=== PATIENT | female | born 1980 | race Caucasian/White ===

== ENCOUNTER → 2017-03-04 | Outpatient (CLI) | payer BC ==
[~2017-03-04] MED LIST: ACHYD1T PO; AMOX-355 PO; AMOX-358 PO; BUPR-42 PO; COPAXONE; DCS100C PO; DEXA0.5T PO; DOCU100C37 PO; FLUO20CA25 PO; FLUT9.9S NS; FRS325T PO; GADOBUTROL 7.5 MMOL/7.5 ML (GADAVIST) VIAL IV ONE; HYDR-3812 PO; IBP800T PO; ITRA100C PO; LEVO5TAB2 PO; LEVO5TAB28 PO; LIRA0.6P SQ; LVT.088T PO; METF-380 PO; METF500T8 PO; MULT1TAB12 PO; NALT1TAB PO; NAPR500T4 PO; OXYC-465 PO; PRD20T PO; PREN1TAB64 PO; Patient May Use Own Meds, All MC; SPIR25TA3 PO; SPIR50TA2 PO; THYR65TA5 PO
--- NOTE | 2017-03-04 18:57 | Diagnostic Imaging Report ---
INDICATION: Multiple sclerosis Multiplanar pre-and postcontrast MR imaging of the thoracic spine are obtained. Comparison is made to the study of 10/03/2015. Thoracic spinal curvature and alignment remain within normal limits. Vertebral body heights and disc spaces are maintained. There has been slight overall increase in conspicuity of the central canal throughout the thoracic spinal cord. There is, however, no significant eccentricity or solid component. There is no abnormal enhancement. Note is made of small left paramedian protrusion of the T6-7 and T7-8 disc without significant spinal stenosis. No other significant disc disease or spinal stenosis is identified. There is no evidence of paraspinous abnormality. IMPRESSION: Mild overall increase in central spinal canal which may be due to mild hydromyelia. There is no evidence of mass lesion or abnormal enhancement. There is no MRI evidence of active multiple sclerosis plaque. Small left paramedian protrusion to the T6-7 and T7-8 disc demonstrate no significant associated stenosis. Dictated by: Dictated on workstation # [id number]
--- NOTE | 2017-03-04 19:47 | Diagnostic Imaging Report ---
EXAMINATION: MRI lumbar spine with and without contrast dated 03/04/2017. TECHNIQUE: Multiplanar, multisequence MRI of the lumbar spine was performed with and without contrast. INDICATION: History of MS. Recheck. COMPARISON: 10/03/2015. FINDINGS: As previously described, a transitional-type vertebral body is seen in the lower lumbar region. Labeling will be performed similar to previous. Please see sagittal imaging. At L4-L5, very mild grade 1 retrolisthesis is stable from previous with remaining alignment maintained. Vertebral body heights are preserved. Tip of the conus has a normal appearance and lies at the T12-L1 level. From L1-L2 through L2-L3, no significant central or neuroforaminal stenosis is appreciated. The L3-L4 level demonstrates disc desiccation with mild broad-based bulging disc material. Bilateral facet hypertrophy is seen with no central stenosis appreciated. The neuroforamina are patent. At L4-L5, there is disc desiccation. There is a broad-based bulging disc with bilateral facet hypertrophy. No significant central stenosis is appreciated. The neuroforamina demonstrate minimal narrowing on the left and no narrowing on the right. At L5-S1, disc desiccation is noted. Slight right paracentral bulging disc is seen with no central narrowing appreciated. The neuroforamina appear patent. Post contrast imaging is unremarkable. The visualized intrapelvic structures demonstrate a poorly evaluated but prominent-appearing uterus. Remaining intra-abdominal structures are grossly unremarkable. Pelvic sonography could better characterize the uterus, as clinically warranted. IMPRESSION: 1. Degenerative findings, as described. No significant interval change is seen. 2. Other incidental findings including within the pelvis, as noted above. Dictated by: Dictated on workstation # [id number]
== END ==
LOC: RAD 16:51
PROVIDERS: ATTEND Nurse Practitioner Family
DX: M51.24 Other intervertebral disc displacement, thoracic region (principal); M51.26 Other intervertebral disc displacement, lumbar region; M47.816 Spondylosis without myelopathy or radiculopathy, lumbar region
CPT/HCPCS: 72157; 72158

== ENCOUNTER → 2017-03-05 | Outpatient (CLI) | payer BC ==
--- NOTE | 2017-03-05 09:50 | Diagnostic Imaging Report ---
PROCEDURE: MR imaging cervical spine with and without contrast. TECHNIQUE: Multiplanar and multisequence MRI of the cervical spine was performed with and without contrast. INDICATION: History of multiple sclerosis. COMPARISON: 10/02/2015. FINDINGS: The cervical spinal cord has an unremarkable volume morphology and signal intensity and showed no abnormal enhancement following contrast. It showed no change from prior and there is no convincing evidence for acute or chronic cervical involvement by sequelae of a demyelinating disease. The vertebral body heights are maintained. The alignment is anatomic. Bulging desiccated disc at C4-C5, effacing and indenting the ventral thecal sac resulting in mild canal stenosis with no substantial foraminal narrowing. Bulging disc at C5-C6 is at the midline, mildly indenting the ventral thecal sac with mild canal stenosis. At C6-C7 some slight bulging disc eccentric to the left, results in no substantial canal or foraminal stenosis. These findings are stable. IMPRESSION: Pll-fr-mundi cervical spondylosis with stable mild degrees of stenosis. Normal cord. No abnormal enhancement. No acute appearing pathology. Dictated by: Dictated on workstation # [id number]
--- NOTE | 2017-03-05 12:41 | Diagnostic Imaging Report ---
PROCEDURE: MR imaging of the brain with and without contrast. TECHNIQUE: Multiplanar, multisequence MR imaging of the brain was performed with and without contrast. INDICATION: Multiple sclerosis. Study compared 10/02/2015. FINDINGS: Minimal right greater than left periatrial deep white matter T2 hyperintensity best seen on FLAIR weighted pulse sequences is less conspicuous than on prior. White matter disease adjacent to the posterior body of the left lateral ventricle is not substantially changed. Small amount of left frontal lobe subcortical white matter disease unchanged. No new lesion or adverse development. None of the foci of abnormal signal or white matter pathology revealed mass effect and none showed abnormal diffusion restriction. None of the lesions revealed enhancement following contrast. There were no findings of disease progression or evidence for active demyelinization. The optic nerves and orbital contents had an unremarkable appearance. The brainstem and posterior fossa unremarkable. There is no intracranial hemorrhage. The midline structures are nondisplaced. IMPRESSION: White matter disease showed no progression from prior and no findings of active demyelinization at this study. No acute finding or adverse development. Dictated by: Dictated on workstation # [id number]
== END ==
LOC: RAD 08:03
PROVIDERS: ATTEND Internal Medicine
DX: M47.812 Spondylosis without myelopathy or radiculopathy, cervical region (principal); G35 Multiple sclerosis
CPT/HCPCS: 70553; 72156

== ENCOUNTER 2017-04-04 09:28 | Outpatient (CLI) | payer BC ==
[~2017-04-04] VITALS: Ht 160 cm; Wt 71.5 kg
[~2017-04-04 09:28] MED LIST changes: -AMOX-355 PO; -AMOX-358 PO; -BUPR-42 PO; -DOCU100C37 PO; -FLUT9.9S NS; -HYDR-3812 PO; -ITRA100C PO; -LEVO5TAB28 PO; -METF500T8 PO; -NALT1TAB PO; -NAPR500T4 PO; -OXYC-465 PO; -PRD20T PO; -Patient May Use Own Meds, All MC; -SPIR50TA2 PO; -THYR65TA5 PO
[2017-04-04] MEDS ORDERED: NALT1TAB PO (09:45)
[2017-04-04] MEDS ORDERED: SPIR50TA2 PO (09:45)
[2017-04-04] MEDS ORDERED: METF500T8 PO (09:45)
[2017-04-04] MEDS ORDERED: THYR65TA5 PO (09:45)
[2017-04-04] MEDS ORDERED: LEVO5TAB28 PO (09:45)
[2017-04-04 09:54] VITALS: BP 115/81
[2017-04-04 10:24] LABS: BASOPHILS % (AUTO) 0 % (0-10); EOSINOPHILS # (AUTO) 0.2 10^3/uL (0.0-0.3); EOSINOPHILS % (AUTO) 2 % (0-10); LYMPHOCYTES # (AUTO) 3.5 X 10^3 (1.0-4.0); LYMPHOCYTES % (AUTO) 28 % (12-44); MEAN CORPUSCULAR HEMOGLOBIN 31 PG (25-34); MEAN CORPUSCULAR HGB CONC 34 G/DL (32-36); MEAN CORPUSCULAR VOLUME 90 FL (80-99); MEAN PLATELET VOLUME 10.1 FL (7.4-10.4); MONOCYTES # (AUTO) 1.2 X 10^3 (0.0-1.0); MONOCYTES % (AUTO) 10 % (0-12); NEUTROPHILS # (AUTO) 7.6 X 10^3 (1.8-7.8); NEUTROPHILS % (AUTO) 60 % (42-75); PLATELET COUNT 337 10^3/uL (130-400); RED BLOOD COUNT 4.63 10^6/uL (4.35-5.85); RED CELL DISTRIBUTION WIDTH 12.3 % (10.0-14.5); WHITE BLOOD COUNT 12.6 10^3/uL (4.3-11.0)
[2017-04-04] MEDS ORDERED: AMOX-358 PO (14:12)
[2017-04-04] MEDS ORDERED: ITRA100C PO (14:12)
[2017-04-04] MEDS ORDERED: NAPR500T3 PO (14:12)
[2017-04-04] MEDS ORDERED: DEXA0.5T PO (14:12)
[2017-04-05] MEDS ORDERED: FLUT9.9S NS (12:46)
== END 2017-04-04 10:28 | disposition home or self-care (01) ==
LOC: PREOP 09:28
PROVIDERS: ATTEND Obstetrics & Gynecology
DX: Z01.812 Encounter for preprocedural laboratory examination (principal); N93.8 Other specified abnormal uterine and vaginal bleeding
CPT/HCPCS: 36415; 85025; 86850; 86900; 86901; 87081

== ENCOUNTER → 2017-04-04 | Outpatient (CLI) | payer BC ==
[~2017-04-04] MED LIST changes: -GADOBUTROL 7.5 MMOL/7.5 ML (GADAVIST) VIAL IV ONE
--- NOTE | 2017-04-04 11:25 | Diagnostic Imaging Report ---
PROCEDURE: CT sinuses without contrast TECHNIQUE: Multiple contiguous axial images were obtained through the sinuses without the use of intravenous contrast. Coronal and sagittal reformations were then performed. INDICATION: Chronic pansinusitis. FINDINGS: There is opacification of a mid left ethmoidal air cell. The rest of the paranasal sinuses appear clear. The middle ear cavities and ossicles appear unremarkable. The ostiomeatal complex on the right is patent. The ostiomeatal complex on the left demonstrates minimal mucosal thickening but is probably patent with no accumulation of secretions in the left maxillary sinus. There is moderate mucosal thickening in the inferior ethmoidal air cells. Mild nasal septal deviation to the left is seen. There is moderate mucosal thickening along the inferior turbinates bilaterally. This results in slight narrowing of the nasal passages. IMPRESSION: 1. Mild mucosal thickening along the left ethmoidal air cells and along the left ostiomeatal complex. 2. Moderate mucosal thickening along the inferior turbinates bilaterally. Dictated by: Dictated on workstation # [id number]
== END ==
LOC: RAD 09:32
PROVIDERS: ATTEND Otolaryngology Otolaryngology/Facial Plastic Surgery
DX: J01.80 Other acute sinusitis (principal)
CPT/HCPCS: 70486

== ENCOUNTER 2017-04-08 10:19 | Day surgery (SDC) | payer BC ==
[~2017-04-08] VITALS: Ht 160 cm; Wt 71.5 kg
[~2017-04-08 10:19] MED LIST changes: +AMOX-358 PO; +FLUT9.9S NS; +ITRA100C PO; +LEVO5TAB28 PO; +METF500T8 PO; +NALT1TAB PO; +NAPR500T4 PO; +SPIR50TA2 PO; +THYR65TA5 PO
[2017-04-08 10:35] VITALS: BP 133/85
[2017-04-08] MEDS: LACTATED RINGERS 1,000 ML IV PRN ×2 (10:35→12:50)
[2017-04-08] MEDS ORDERED: ONDANSETRON 4 MG/2 ML (SDV) Z0FRAN ONE (10:54)
[2017-04-08] MEDS ORDERED: FAMOTIDINE 20MG/2ML IV (PEPCID) ONE (10:54)
[2017-04-08] MEDS ORDERED: ceFAZolin 1 GM/NS 50 ML IVPB IV ONE ×2 (11:00)
[2017-04-08] MEDS ORDERED: FAMOTIDINE 20MG/2ML IV (PEPCID) IV ONE (11:15)
[2017-04-08] MEDS ORDERED: ONDANSETRON 4 MG/2 ML (SDV) Z0FRAN IV ONE (11:15)
[2017-04-08] MEDS ORDERED: MIDAZOLAM 2 MG/2 ML (VERSED) VIAL ONE (11:19)
[2017-04-08] MEDS ORDERED: BUP/EPI 0.5% 1:200,000 (MARCAINE) 10ML VIAL IJ ONE (11:52)
--- NOTE | 2017-04-08 11:59 | Progress Note-Pre Operative ---
Pre-Operative Progress Note H&P Reviewed The H&P was reviewed, patient examined and no changes noted. Date Seen by Provider: Apr 08, 2017 Time Seen by Provider: 11:59 Date H&P Reviewed: Apr 08, 2017 Time H&P Reviewed: 11:59 Pre-Operative Diagnosis: dysfunctional uterine bleeding/menorrhagia JEREMY EDUARDO MD Apr 08, 2017 11:59 am
[2017-04-08] MEDS ORDERED: PATIENT MAY USE OWN MEDS, ALL MC SCH (12:00)
[2017-04-08] MEDS ORDERED: ONDANSETRON 4 MG/2 ML (SDV) Z0FRAN IVP PRN (12:00)
--- NOTE | 2017-04-08 12:00 | Progress Note-Post Operative ---
Post-Operative Progess Note Surgeon (s)/Digester Hand (s) Surgeon JEREMY EDUARDO MD Digester Hand: Manasa Oleary Pre-Operative Diagnosis dysfunctional uterine bleeding/menorrhagia Post-Operative Diagnosis same with, left ovarian cyst, endometriosis, and pathology pending Procedure & Operative Findings Date of Procedure 04/08/17 Procedure Performed/Findings total laparoscopic hysterectomy with bilateral salpingectomy, aspiration of left ovarian cyst, destruction of endometriosis Anesthesia Type GETA Estimated Blood Loss Estimated blood loss (mL): minimal Specimens/Packing Specimens Removed uterus and fallopian tubes Packing: JEREMY Moreno MD Apr 08, 2017 12:00
[2017-04-08] MEDS ORDERED: SCOPOLAMINE 1.5 MG (TRANSDERM-SCOP) PATCH ONE (12:04)
[2017-04-08] MEDS ORDERED: DOCU100C37 PO (12:07)
[2017-04-08] MEDS ORDERED: Patient May Use Own Meds, All MC (12:07)
[2017-04-08] MEDS ORDERED: NAPR500T4 PO (12:07)
[2017-04-08] MEDS ORDERED: OXYC-465 PO (12:07)
--- NOTE | 2017-04-08 12:09 | Discharge Instructions ---
Discharge Instructions Discharge Medications New, Converted or Re-Newed RX: RX on Chart Patient Instructions Patient Instructions: as directed Return to The Hospital For: as directed Activity & Diet Discharge Diet: No Restrictions Activity as Tolerated: No Orders-Post D/C & Referrals Follow Up Appt: return to clinic as scheduled on Tuesday for staple removal Call to make follow up appt. for patient in 4 weeks. Activity: Rest for 24 hours, than as tolerated. Wound Care: May remove Band-Aid tomorrow. Replace as desired. Keep incisions clean and dry. Wash daily with soap and water. Please call in RX to patient pharmacy. Diet: As tolerated-Clear Liquids only if nauseated. Tomorrow, may shower or tub bathe as desired. No driving for 24 hours, no alcoholic beverages for 24 hours, and nothing per vagina (no tampons, douching, or intercourse) for 8 weeks. Patient to return to the clinic as soon as possible for: Temperature greater than 101F, Severe Pain, Foul discharge from incision or vagina, Excessive Bleeding (more than a period). JEREMY EDUARDO MD Apr 08, 2017 12:09 pm
[2017-04-08] MEDS ORDERED: metFORMIN XR 500 MG (GLUCOPHAGE XR) TAB PO PRN (12:15)
[2017-04-08] MEDS ORDERED: NON-FORMULARY MEDICATION 1 EA EA (Naproxen 500 MG) PO PRN (12:15)
[2017-04-08] MEDS ORDERED: LIDOCAINE PF 2% 5 ML (XYLOCAINE) VIAL ONE (12:31)
[2017-04-08] MEDS ORDERED: DEXAMETHASONE 10 MG/ML (DECADRON) 1 ML VIAL ONE (12:31)
[2017-04-08] MEDS ORDERED: proPOfol 200 MG/20 ML (DIPRIVAN) VIAL IV ONE (12:31)
[2017-04-08] MEDS ORDERED: ROCURONIUM 50 MG/5 ML (ZEMURON) VIAL IV ONE (12:31)
[2017-04-08] MEDS ORDERED: SEVOFLURANE (ULTANE) 15 ML INHAL SOLN ONE ×5 (12:31→13:48)
[2017-04-08] MEDS ORDERED: GLYCOPYRROLATE 0.2 MG/ML (ROBINUL) 2 ML VIAL ONE (13:42)
[2017-04-08] MEDS ORDERED: NEOSTIGMINE (BLOXIVERZ ) 1 MG/1ML 10 ML VIAL ONE (13:42)
[2017-04-08] MEDS ORDERED: morphine INJ 10 MG/ML 1ML (SYR OR VIAL) ONE (14:13)
[2017-04-08] MEDS: KETOROLAC 30 MG/ML VIAL IVP SCH ×2 (14:22→20:45)
[2017-04-08] MEDS ORDERED: morphine INJ 10 MG/ML 1ML (SYR OR VIAL) IVP ONE (14:45)
[2017-04-08 15:00] VITALS: BP 100/64
[2017-04-08] MEDS: fentaNYL INJECTION 100 MCG/2 ML AMP IVP PRN ×4 (15:28→18:52)
[2017-04-08] MEDS: D5 LR IV SOLUTION 1,000 ML IV SCH ×2 (16:45→22:47)
[2017-04-08 20:00] VITALS: BP 115/69
[2017-04-08] MEDS: oxyCODONE/APAP 10/325MG (PERCOCET 10) TABLET PO PRN (20:45)
[2017-04-08] MEDS ORDERED: SPIRONOLACTONE 50 MG TABLET PO SCH (21:00)
[2017-04-08] MEDS ORDERED: BUPROPION HCL PO SCH (21:00)
[2017-04-08] MEDS ORDERED: [UNRECOGNIZED DRUG - OTHER] PO SCH (21:00)
[2017-04-08] MEDS ORDERED: NALTREXONE HCL PO SCH (21:00)
--- NOTE | 2017-04-08 21:11 | Progress Note-Standard ---
Standard Progress Note Progress Notes/Assess & Plan Date Seen by Provider: Apr 08, 2017 Time Seen by Provider: 21:09 Progress/Assessment & Plan this patient is without complaint. She is ambulating, voiding, tolerating by mouth well, has good pain control. Patient denies chest pain, denies shortness breath, denies nausea vomiting, denies headache. Vital Signs Date Time Temp Pulse Resp B/P (MAP) Pulse Ox O2 Delivery O2 Flow Rate FiO2 04/08/17 15:00 97.0 99 16 100/64 96 Room Air 04/08/17 10:35 98.5 110 16 133/85 97 Room Air I & O 04/09/17 07:00 Intake Total 2050 ml Output Total 130 ml Balance 1920 ml Vital signs are stable. Patient is afebrile. Abdomen is benign. Extremities show clubbing or cyanosis. There is no Homans sign. Assessment and plan status post total laparoscopic hysterectomy with bilateral salpingectomies and destruction of endometriosis and aspiration of left ovarian cyst. Patient is doing quite well. Plan will be continue observation through the night and allow discharge home tomorrow with follow-up in clinic. Discharge instructions were given and discharge orders and prescriptions are written in the chart. Final Diagnosis dysfunctional uterine bleeding/menorrhagia JEREMY EDUARDO MD Apr 08, 2017 9:11 pm
--- NOTE | 2017-04-08 22:18 | OPERATIVE REPORT ---
DATE OF SERVICE: 04/08/2017 PREOPERATIVE DIAGNOSIS: Dysfunctional uterine bleeding and menorrhagia. POSTOPERATIVE DIAGNOSIS: Dysfunctional uterine bleeding and menorrhagia with endometriosis. Left ovarian cyst. OPERATIVE PROCEDURE: Total laparoscopic hysterectomy with bilateral salpingectomies as well as destruction of endometriosis implants. Aspiration of left ovarian cyst. DESCRIPTION OF PROCEDURE: With the patient in the supine position under satisfactory general anesthesia, she was repositioned in the dorsal lithotomy position in the [facility] and prepped and draped in the usual fashion for abdominal and vaginal surgery. Her urinary bladder was drained via Monique catheter to dependent drainage. A weighted speculum was placed in the posterior fornix of the vagina, cervix exposed and grasped anteriorly with a single-toothed tenaculum. Uterus was sounded to 12.5 cm with the uterine sound. The cervix was then serially dilated with Joe dilators to accommodate a ESTHER II manipulator which was placed using a 6 mm x 8 cm uterine probe and a 30 mm colpotomy ring. Sutures of #1 Vicryl placed at 3 and 9 o'clock position of the cervix for affixing the specimen to the manipulator. The patient was now brought in low dorsal lithotomy position and the tenaculum and speculum having been removed from the cervix. A 12 mm incision was made 5 cm superior to the umbilicus. 8 mm incisions were made 9 cm lateral to the umbilical on each side. All the incision sites were infiltrated with 0.5% Marcaine with epinephrine prior to incision. The Veress needle was placed through the upper incision. Correct placement was confirmed with the water drop test. The abdomen was insufflated with 2.4 liters of carbon dioxide and then the Veress needle was removed and a 12 mm operative laparoscopic port placed. The laparoscope was then introduced and ports of 8 mm were placed in the lateral incisions under direct vision. The patient was placed in Trendelenburg allowing the bowel to spill up out of the pelvis. There was a fairly large left ovarian cyst. The right ovary was normal. Both fallopian tubes were somewhat clubbed due to endometriosis. There were endometriosis implants in both ovarian fossae and the uterus was densely involved with adenomyosis as evidenced by its mottled blotched appearance and bulky soft consistency. The appendix was identified. It was a normal vermiform appendix. The laparoscope was brought back to the pelvis. Using the vessel sealer, the right fallopian tube was grasped and elevated. The mesosalpinx was then clamped, cauterized and divided stepwise across to the uteroovarian pedicle where the uteroovarian pedicle was then clamped, cauterized and divided as well. The same process was used on the round ligament, the broad ligaments and down the sides of the uterus onto the cardinal ligament which was treated in the same manner. The same procedure was performed on the left with the same result. There was approximately a 4-5 cm simple cyst involving the left ovary, but the ovary was mobile and it was not a particular issue to work around it. With the adnexa free and the tube still attached to the uterus, the anterior lower uterine segment peritoneum was divided with monopolar caesar, having replaced instead of the vessel sealer. The bladder was carefully dissected down off the lower uterine segment and then colpotomy incision was started at the 12 o'clock position and continued circumferentially until the entire colpotomy ring was exposed, allowing for removal of the uterus with the tube still attached through the vagina. The vaginal cuff was then closed with two sutures of V-Loc barbed suture starting first on the right angle and including the of the uterine vessels in the closure for secure hemostasis. The closure was continued just past the midpoint and then a second suture was used starting from the left including again those uterine vessels that had been cauterized in that closure to ensure hemostasis. The vaginal cuff was completely closed with that suture. Pelvis was irrigated and examined for hemostasis which was complete. Prior to completing the procedure, the cyst on the left ovary was fenestrated with electrocautery releasing straw-colored fluid that was aspirated directly out. Endometriosis implants in both ovarian fossae were then touched with electrocautery using the monopolar caesar to destroy those implants. There were additional implants in the cul-de-sac as well that were destroyed. The pelvis was examined, having been irrigated, there was no bleeding. There was no remaining abnormal pathology. Both ureters were seen to peristalse before, during and after the procedure and at this point were seen again. The procedure was terminated at this point. The operative instruments were removed under direct vision as were the ports. The abdomen was evacuated of the insufflating gas in the process of removing the ports. The patient was brought out of Trendelenburg. Sponge and needle counts were correct. Hemostasis was assured. The skin incisions were closed with interrupted sutures of 3-0 nylon. The fascia at the supraumbilical incision was closed with [id number] suture of 2-0 Vicryl. Speculum was replaced in the vagina. The vaginal cuff was examined and found completely reapproximated and completely hemostatic. Sponge and needle counts again were correct at the end of the procedure. Estimated blood loss was minimal. The patient tolerated the procedure well, was uneventfully awakened from her general anesthesia and transferred to the recovery room in stable condition with plans for discharge home DC. Job ID: [id number] DocumentID: [id number] Dictated Date: 04/08/2017 13:50:02 Furniture Finisher Date: 04/08/2017 22:17:15 Dictated By: JEREMY EDUARDO MD
[2017-04-09 00:19] VITALS: BP 109/61
[2017-04-09] MEDS: KETOROLAC 30 MG/ML VIAL IVP SCH ×2 (02:21→08:10)
[2017-04-09 03:39] VITALS: BP 106/65
[2017-04-09] MEDS: oxyCODONE/APAP 10/325MG (PERCOCET 10) TABLET PO PRN ×2 (05:12→11:28)
[2017-04-09] MEDS ORDERED: THYROID 1 GRAIN (60 - 65 MG) TABLET PO SCH (06:30)
[2017-04-09 08:00] VITALS: BP 93/59
[2017-04-09] MEDS ORDERED: DOCUSATE SODIUM 100 MG (COLACE) CAP PO SCH (09:00)
[2017-04-09] MEDS ORDERED: LEVOCETIRIZINE 5 MG TAB (XYZAL) NON-FORMULARY PO SCH (09:00)
[2017-04-09] MEDS ORDERED: ITRACONAZOLE 100 MG PO SCH (09:00)
[2017-04-09] MEDS ORDERED: IBUPROFEN 800 MG (MOTRIN) TAB PO SCH (12:00)
[2017-04-09 12:25] VITALS: BP 93/59
== END 2017-04-09 12:25 | disposition home or self-care (01) ==
LOC: SDC 10:19 → WS 14:55 → SDC 04-09 12:25
PROVIDERS: ATTEND Obstetrics & Gynecology
DX: N93.8 Other specified abnormal uterine and vaginal bleeding (principal); N92.0 Excessive and frequent menstruation with regular cycle; N80.2 Endometriosis of fallopian tube; N80.0 Endometriosis of uterus; N80.1 Endometriosis of ovary; N80.3 Endometriosis of pelvic peritoneum; N83.8 Other noninflammatory disorders of ovary, fallopian tube and broad ligament; E28.2 Polycystic ovarian syndrome; Z79.84 Long term (current) use of oral hypoglycemic drugs; Z79.899 Other long term (current) drug therapy
CPT/HCPCS: 36415; 84703; 86850; 86900; 86901; 88307; 94664

== ENCOUNTER 2017-04-19 05:33 | Outpatient (CLI) | payer BC ==
[~2017-04-19] VITALS: Ht 160 cm; Wt 71.5 kg
[~2017-04-19 05:33] MED LIST changes: +DOCU100C37 PO; +NAPR500T3 PO; -NAPR500T4 PO; +OXYC-465 PO; +Patient May Use Own Meds, All MC
[2017-04-19] MEDS ORDERED: DEXA0.5T PO (09:39)
[2017-04-19] MEDS ORDERED: BUPR-42 PO (09:39)
== END 2017-04-19 10:05 ==
LOC: PREOP 05:33
PROVIDERS: ATTEND Otolaryngology Otolaryngology/Facial Plastic Surgery
DX: Z01.818 Encounter for other preprocedural examination (principal); J32.9 Chronic sinusitis, unspecified; J34.2 Deviated nasal septum; J34.3 Hypertrophy of nasal turbinates

== ENCOUNTER 2017-04-21 06:04 | Day surgery (SDC) | payer BC ==
[~2017-04-21] VITALS: Ht 160 cm; Wt 71.5 kg
[~2017-04-21 06:04] MED LIST changes: +BUPR-42 PO
[2017-04-21 06:30] VITALS: BP 114/77
[2017-04-21] MEDS ORDERED: ONDANSETRON 4 MG/2 ML (SDV) Z0FRAN IV ONE (06:45)
[2017-04-21] MEDS ORDERED: SCOPOLAMINE 1.5 MG (TRANSDERM-SCOP) PATCH TOP ONE (06:45)
[2017-04-21] MEDS ORDERED: FAMOTIDINE 20MG/2ML IV (PEPCID) IV ONE (06:45)
[2017-04-21] MEDS ORDERED: LACTATED RINGERS 1,000 ML IV PRN (06:45)
[2017-04-21] MEDS ORDERED: COCAINE HCL 4% 2 ML SYR ONE (06:47)
[2017-04-21] MEDS ORDERED: BSS 15 ML ONE (06:47)
[2017-04-21] MEDS ORDERED: PHENYLEPHRINE 0.5% NASAL SPR (NEO-SYNEPHRINE) REG ONE (06:47)
[2017-04-21] MEDS ORDERED: LIDOCAINE/EPI 1%-1:200,000 (XYLOCAINE) 10 ML VIAL ONE (06:47)
[2017-04-21] MEDS ORDERED: AMPICILLIN/SULBACTAM 1.5 GM/NS 50 ML IVPB IV ONE ×2 (07:00)
[2017-04-21] MEDS ORDERED: proPOfol 200 MG/20 ML (DIPRIVAN) VIAL IV ONE (07:01)
[2017-04-21] MEDS ORDERED: SEVOFLURANE (ULTANE) 15 ML INHAL SOLN ONE ×2 (07:01→08:31)
[2017-04-21] MEDS ORDERED: LIDOCAINE PF 2% 5 ML (XYLOCAINE) VIAL ONE (07:01)
[2017-04-21] MEDS ORDERED: LACTATED RINGERS 1,000 ML IV ONE (07:01)
[2017-04-21] MEDS ORDERED: DEXAMETHASONE 10 MG/ML (DECADRON) 1 ML VIAL ONE (07:01)
[2017-04-21] MEDS ORDERED: MIDAZOLAM 2 MG/2 ML (VERSED) VIAL ONE (07:02)
[2017-04-21] MEDS ORDERED: fentaNYL INJECTION 100 MCG/2 ML AMP ONE (07:02)
--- NOTE | 2017-04-21 07:09 | Progress Note-Pre Operative ---
Pre-Operative Progress Note H&P Reviewed The H&P was reviewed, patient examined and no changes noted. Date Seen by Provider: Apr 21, 2017 Time Seen by Provider: 06:40 Date H&P Reviewed: Apr 21, 2017 Time H&P Reviewed: 06:40 Pre-Operative Diagnosis: Bilat Chrnic recurrnet Sinusitis/ Bilat Hypr of Inf Turbs MARCELO ANDINO MD Apr 21, 2017 7:09 am
[2017-04-21] MEDS ORDERED: HYDROCORTISONE 100 MG/2 ML (Solu-CORTEF) VIAL ONE (07:33)
[2017-04-21] MEDS ORDERED: D5 1/2 NS W/KCL 20 MEQ/L 1,000 ML IV SCH (08:31)
--- NOTE | 2017-04-21 08:31 | Progress Note-Post Operative ---
Post-Operative Progess Note Surgeon (s)/Track Welder (s) Surgeon MARCELO ANDINO MD Track Welder n/a Pre-Operative Diagnosis Bilat Chrnic recurrnet Sinusitis/ Bilat Hypr of Inf Turbs Post-Operative Diagnosis same Post-Op Procedure Note Date of Procedure: Apr 21, 2017 Name of Procedure Performed: Bilat ESS, Bilat PArtial REduction of the INf Turbs Description & Findings Description and Findings: n/a Anesthesia Type get Estimated Blood Loss minimal Packing none. Specimen(s) collected/removed Bilt Chronic sinus disease MARCELO ANDINO MD Apr 21, 2017 8:31 am
[2017-04-21] MEDS ORDERED: ROCURONIUM 50 MG/5 ML (ZEMURON) VIAL IV ONE (08:38)
[2017-04-21] MEDS ORDERED: HYDROcodone/APAP 5 MG/325 MG (LORTAB) TAB PO PRN (08:45)
[2017-04-21] MEDS ORDERED: PROMETHAZINE INJ 25 MG/ML (PHENERGAN) AMP IVP PRN (08:45)
[2017-04-21] MEDS ORDERED: ACETAMINOPHEN 325 MG TABLET/CAPLET (TYLENOL) PO PRN (08:45)
[2017-04-21] MEDS ORDERED: predniSONE 20 MG TAB PO ONE (08:45)
[2017-04-21] MEDS ORDERED: ONDANSETRON 4 MG/2 ML (SDV) Z0FRAN IVP PRN (09:00)
[2017-04-21] MEDS ORDERED: fentaNYL INJECTION 100 MCG/2 ML AMP IVP PRN (09:00)
[2017-04-21] MEDS: morphine INJ 10 MG/ML 1ML (SYR OR VIAL) IVP PRN ×2 (09:09→09:14)
[2017-04-21 09:35] VITALS: BP 122/68
[2017-04-21 10:05] VITALS: BP 127/77
[2017-04-21] MEDS ORDERED: PRD20T PO (10:11)
[2017-04-21] MEDS ORDERED: AMOX-355 PO (10:11)
[2017-04-21] MEDS ORDERED: HYDR-3812 PO (10:11)
[2017-04-21 10:35] VITALS: BP 106/68
== END 2017-04-21 10:55 | disposition home or self-care (01) ==
LOC: SDC 06:04
PROVIDERS: ATTEND Otolaryngology Otolaryngology/Facial Plastic Surgery
DX: J32.0 Chronic maxillary sinusitis (principal); J32.2 Chronic ethmoidal sinusitis; J34.3 Hypertrophy of nasal turbinates; G35 Multiple sclerosis; E03.9 Hypothyroidism, unspecified; R73.03 Prediabetes; E28.2 Polycystic ovarian syndrome; F41.9 Anxiety disorder, unspecified; F32.9 Major depressive disorder, single episode, unspecified; G43.909 Migraine, unspecified, not intractable, without status migrainosus; Z79.84 Long term (current) use of oral hypoglycemic drugs; Z79.899 Other long term (current) drug therapy
CPT/HCPCS: 87081

== ENCOUNTER → 2018-04-03 | Outpatient (CLI) | payer BC ==
[~2018-04-03] MED LIST changes: +ACHD5005 PO; +AMOX-355 PO; +NAPR-915 PO; -NAPR500T3 PO; +PRD20T PO; -SPIR50TA2 PO; +SPIR50TA4 PO
--- NOTE | 2018-04-03 13:05 | Diagnostic Imaging Report ---
INDICATION: Routine screening. Comparison is made with prior mammogram from 12/26/2013. 2-D and 3-D bilateral screening mammography was performed with CAD. The current study was also evaluated with a Computer Aided Detection (CAD) system. FINDINGS: Mild parenchymal density is identified bilaterally. No dominant mass or malignant-appearing microcalcifications are seen. The axillae are unremarkable. IMPRESSION: No mammographic features suspicious for malignancy are identified. ACR BI-RADS Category 1: Negative. Result letter will be mailed to the patient. Note: At least 10% of breast cancer is not imaged by mammography. Dictated by: Dictated on workstation # [id number]
== END ==
LOC: RAD 09:38
PROVIDERS: ATTEND Obstetrics & Gynecology
DX: Z12.31 Encounter for screening mammogram for malignant neoplasm of breast (principal)
CPT/HCPCS: 77067

== ENCOUNTER 2018-05-08 11:30 | Outpatient (CLI) | payer BC ==
[~2018-05-08] VITALS: Ht 160 cm; Wt 74.8 kg
[~2018-05-08 11:30] MED LIST changes: +THYR32.57 PO
[2018-05-08] MEDS ORDERED: LEVO5TAB28 PO (11:46)
[2018-05-08] MEDS ORDERED: CYCL10TA9 PO (11:46)
[2018-05-08] MEDS ORDERED: NALTREXONE PO (11:46)
== END 2018-05-08 11:47 | disposition home or self-care (01) ==
LOC: PREOP 11:30
PROVIDERS: ATTEND Internal Medicine
DX: Z01.818 Encounter for other preprocedural examination (principal)

== ENCOUNTER 2018-05-12 06:37 | Day surgery (SDC) | payer BC ==
--- NOTE | 2018-04-20 15:37 | HISTORY AND PHYSICAL ---
DATE OF SERVICE: COLONOSCOPY SUMMARY HISTORY OF PRESENT ILLNESS: The patient is a 38-year-old white female referred by Dr. Beck for screening colonoscopy. She is deemed to be of higher than average risk as she has multiple second-degree relatives, probably three uncles and 2 or 3 cousins diagnosed with colon cancer, ages 55 to 75 years. She last underwent colonoscopy 5-1/2 years ago, at which time no evidence for neoplasia was identified. She does recall having some discomfort after her last procedure and has a history of irritable bowel syndrome and for this reason, discussed anesthesia for Diprivan administration for which she was agreeable to. She has noted no bright red blood per rectum, melena and does have constipation, predominant IBS aggravated by cholestyramine. She voices no new medical problems compared to 5 years ago. PAST SURGICAL HISTORY: She did undergo total abdominal hysterectomy robotically one year ago without complication and has had sinus surgery several years ago. She has had section in 2011 with four living children, only the last being born by section. PAST MEDICAL HISTORY: Significant for multiple sclerosis, which has been stable. MEDICATIONS: Include Nature-Throid supplement 195 mg daily, naltrexone 4.5 mg daily, Xyzal one daily, Wellbutrin 150 mg daily, and cholestyramine 1 packet b.i.d. SOCIAL HISTORY: She is a elementary science teacher at [employer] with no past drinking or smoking history and no history of illicit drug use. FAMILY HISTORY: As noted in the HPI. PHYSICAL EXAMINATION: GENERAL: Reveals a well-appearing white female, in no acute distress. VITAL SIGNS: Weighted 173 pounds up 19 pounds from 5-1/2 years ago, blood pressure 110/80, heart rate 72 and regular. HEENT: Unremarkable. Sclerae nonicteric. Oral cavity reveals Mallampati class 3 configuration. CHEST: Clear to auscultation. CARDIOVASCULAR: Reveals regular rate and rhythm without murmur, S3 or S4. ABDOMEN: Soft, supple without mass, organomegaly or tenderness with well healed trocar sites without evidence for keloid formation. Bowel sounds are positive in all four quadrants. EXTREMITIES: Reveal no cyanosis, clubbing or edema. ASSESSMENT: The patient is set up for screening colonoscopy higher than average risk due to multiple second-degree relatives with colon cancer as noted above. The test is set up for 05/12. Prep instructions were given and due to past problems with nausea with her prep, she will take 10 mg of Reglan prior. Job ID: [id number] DocumentID: [id number] Dictated Date: 04/12/2018 17:16:44 Oil Spot Washer Date: 04/12/2018 17:59:36 Dictated By: HOLGER CORREA MD
[~2018-05-12] VITALS: Ht 160 cm; Wt 74.8 kg
[~2018-05-12 06:37] MED LIST changes: +CYCL10TA9 PO; +NALTREXONE PO
--- OUTSIDE RECORDS SUMMARY | 2018-05-12 06:56 | XMS REPORT | Continuity of Care Document ---
Author Author [facility] Organization [facility] Address Unknown Phone Unavailable Allergies Active Description Code Type Severity Reaction Onset Reported/Identified Relationship to Patient Clinical Status Yes NKANo Known Allergies NKA Miscellaneous Allergy Unknown N/A 10/26/2006 Yes No Known Drug Allergies [id number] Drug Allergy Unknown N/A 04/04/2017 Medications There is no data. Problems Date Dx Coded Attending Type Code Diagnosis Diagnosed By 06/19/2010 Ot 564.00 06/19/2010 Ot 789.03 06/02/2011 Ot 648.73 06/02/2011 Ot 724.5 06/02/2011 Ot V57.1 08/24/2011 Ot 285.1 AC POSTHEMORRHAG ANEMIA 08/24/2011 Ot 285.9 ANEMIA NOS 08/24/2011 Ot 644.21 EARLY ONSET DELIVERY-DEL 08/24/2011 Ot 648.22 ANEMIA- DELIVERED W P/P 08/24/2011 Ot 652.31 TRANSVER/ OBLIQ LIE-DELIV 08/24/2011 Ot 657.01 POLYHYDRAMNIOS,DEL W OR W/O MENTN ANTEPA 08/24/2011 Ot 660.01 OBSTRUC/FET MALPOS-DELIV 08/24/2011 Ot V06.4 VAC-MEASLE- MUMPS-RUBELLA 08/24/2011 Ot V27.0 DELIVER- SINGLE LIVEBORN 06/24/2012 Ot 327.51 PERIODIC LIMB MOVEMENT DISORDER 08/11/2012 Ot 455.3 EXT HEMORRHOID W/O COMPL 08/11/2012 Ot V12.72 PERSONAL HISTORY OF COLONIC POLYPS 08/11/2012 Ot V16.0 FAMILY HX-GI MALIGNANCY 08/11/2012 Ot V76.51 SCREEN MAL NEOP-COLON 10/02/2015 Ot 733.00 10/02/2015 Ot 780.79 10/02/2015 Ot 781.3 10/02/2015 Ot 782.0 10/02/2015 Ot 794.09 10/02/2015 Ot V72.84 10/02/2015 NOEMI MELTON L EXPRESS CLERK Ot 255.8 10/02/2015 NOEMI MELTON EXPRESS CLERK Ot 573.9 10/02/2015 JAYCE NORTH, JEREMY Zheng Ot V76.12 10/02/2015 REFUGIO MELTONIA L EXPRESS CLERK Ot G35 10/02/2015 CARLOS MELTONRICIA L EXPRESS CLERK Ot J32.9 10/02/2015 CARLOS MELTONRICIA L EXPRESS CLERK Ot M54.9 10/02/2015 CARLOS MELTONRICIA L EXPRESS CLERK Ot R51 10/03/2015 CARLOS MELTONRICIA L EXPRESS CLERK Ot G35 10/03/2015 CARLOS MELTONRICIA L EXPRESS CLERK Ot M43.16 10/15/2015 CARLOS MELTONRICIA L EXPRESS CLERK Ot G35 10/15/2015 REFUGIO MELTONIA L EXPRESS CLERK Ot J32.9 10/15/2015 CARLOS MELTONRICIA L EXPRESS CLERK Ot M54.9 10/15/2015 CARLOS MELTONRICIA L EXPRESS CLERK Ot R51 10/15/2015 CARLOS MELTONRICIA L EXPRESS CLERK Ot G35 10/15/2015 CARLOS MELTONRICIA L EXPRESS CLERK Ot M43.16 10/29/2015 CARLOS MELTONRICIA L EXPRESS CLERK Ot I95.9 10/29/2015 NOEMI MELTON L EXPRESS CLERK Ot R00.0 10/29/2015 REFUGIO MELTONIA L EXPRESS CLERK Ot R23.1 10/29/2015 NOEMI MELTON EXPRESS CLERK Ot R94.31 03/05/2017 Ot 780.79 OTH MALAISE FATIGUE 03/05/2017 Ot 781.3 LACK OF COORDINATION 03/05/2017 Ot 782.0 SKIN SENSATION DISTURB 03/05/2017 Ot 794.09 ABN BLANK DRILLER FUNCT STUDY NEC 03/05/2017 Ot V72.84 EXAM PRE- OPERATIVE NOS 03/05/2017 NOEMI MELTON L EXPRESS CLERK Ot 255.8 ADRENAL DISORDER NEC 03/05/2017 NOEMI MELTON L EXPRESS CLERK Ot 573.9 LIVER DISORDER NOS 03/05/2017 JEREMY EDUARDO MD Ot V76.12 [facility] SCREEN MAMMO-MALIGN NEOPLASM OF AKRMA 03/05/2017 NOEMI MELTON EXPRESS CLERK Ot G35 MULTIPLE SCLEROSIS 03/05/2017 NOEMI MELTON EXPRESS CLERK Ot J32.9 CHRONIC SINUSITIS, UNSPECIFIED 03/05/2017 NOEMI MELTON EXPRESS CLERK Ot M54.9 DORSALGIA, UNSPECIFIED 03/05/2017 NOEMI MELTON EXPRESS CLERK Ot R51 HEADACHE 03/05/2017 NOEMI MELTON EXPRESS CLERK Ot G35 MULTIPLE SCLEROSIS 03/05/2017 NOEMI MELTON EXPRESS CLERK Ot M43.16 SPONDYLOLISTHESIS, LUMBAR REGION 03/05/2017 NOEMI MELTON EXPRESS CLERK Ot I95.9 HYPOTENSION, UNSPECIFIED 03/05/2017 NOEMI MELTON EXPRESS CLERK Ot R00.0 TACHYCARDIA, UNSPECIFIED 03/05/2017 CARLOS MELTONRICIA L EXPRESS CLERK Ot R23.1 PALLOR 03/05/2017 NOEMI MELTON EXPRESS CLERK Ot R94.31 ABNORMAL ELECTROCARDIOGRAM [ECG] [EKG] 03/15/2017 NOEMI MELTON L EXPRESS CLERK Ot M47.816 SPONDYLOSIS W/O MYELOPATHY OR RADICULOPA 03/15/2017 NOEMI MELTON EXPRESS CLERK Ot M51.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, 03/15/2017 NOEMI MELTON EXPRESS CLERK Ot M51.26 OTHER INTERVERTEBRAL DISC DISPLACEMENT, 03/22/2017 LLOYD MELTON DO Ot G35 MULTIPLE SCLEROSIS 03/22/2017 LLOYD MELTON DO Ot M47.812 SPONDYLOSIS W/O MYELOPATHY OR RADICULOPA 03/22/2017 NOEMI MELTON L EXPRESS CLERK Ot M47.816 SPONDYLOSIS W/O MYELOPATHY OR RADICULOPA 03/22/2017 NOEMI MELTON L EXPRESS CLERK Ot M51.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, 03/22/2017 NOEMI MELTON L EXPRESS CLERK Ot M51.26 OTHER INTERVERTEBRAL DISC DISPLACEMENT, 04/04/2017 JAYCE NORTH, JEREMY Zheng Ot N93.8 OTHER SPECIFIED ABNORMAL UTERINE AND VAG 04/04/2017 JEREMY EDUARDO MD, Ot Z01.812 ENCOUNTER FOR PREPROCEDURAL LABORATORY E 04/05/2017 MARCELO ANDINO MD, Ot J01.80 OTHER ACUTE SINUSITIS 04/09/2017 JEREMY EDUARDO MD, Ot E28.2 POLYCYSTIC OVARIAN SYNDROME 04/09/2017 JEREMY EDUARDO MD, Ot N80.0 ENDOMETRIOSIS OF UTERUS 04/09/2017 JEREMY EDUARDO MD, Ot N80.1 ENDOMETRIOSIS OF OVARY 04/09/2017 JEREMY EDUARDO MD, Ot N80.2 ENDOMETRIOSIS OF FALLOPIAN TUBE 04/09/2017 JEREMY EDUARDO MD, Ot N80.3 ENDOMETRIOSIS OF PELVIC PERITONEUM 04/09/2017 JEREMY EDUARDO MD, Ot N83.202 UNSPECIFIED OVARIAN CYST, LEFT SIDE 04/09/2017 JEREMY EDUARDO MD, Ot N83.8 OTH NONINFLAMMATORY DISORD OF OVARY, FAL 04/09/2017 JEREMY EDUARDO MD, Ot N92.0 EXCESSIVE AND FREQUENT MENSTRUATION WITH 04/09/2017 JEREMY EDUARDO MD, Ot N93.8 OTHER SPECIFIED ABNORMAL UTERINE AND VAG 04/09/2017 JEREMY EDUARDO MD, Ot Z79.84 CARE HOME (CURRENT) USE OF ORAL HYPOGLYC 04/09/2017 JEREMY EDUARDO MD, Ot Z79.899 OTHER ACCOUNTING MANAGER ASSISTANT CONTROLLER (CURRENT) DRUG THERAPY 04/13/2017 MARCELO ANDINO MD Ot J01.80 OTHER ACUTE SINUSITIS 04/19/2017 MARCELO ANDINO MD Ot J32.9 CHRONIC SINUSITIS, UNSPECIFIED 04/19/2017 MARCELO ANDINO MD Ot J34.2 DEVIATED NASAL SEPTUM 04/19/2017 MARCELO ANDINO MD Ot J34.3 HYPERTROPHY OF NASAL TURBINATES 04/19/2017 MARCELO ANDINO MD Ot Z01.818 ENCOUNTER FOR OTHER PREPROCEDURAL EXAMIN 04/19/2017 MARCELO ANDINO MD Ot J32.9 CHRONIC SINUSITIS, UNSPECIFIED 04/19/2017 MARCELO ANDINO MD Ot J34.2 DEVIATED NASAL SEPTUM 04/19/2017 MARCELO ANDINO MD Ot J34.3 HYPERTROPHY OF NASAL TURBINATES 04/19/2017 MARCELO ANDINO MD, Ot Z01.818 ENCOUNTER FOR OTHER PREPROCEDURAL EXAMIN 04/19/2017 MARCELO ANDINO MD Ot J32.9 CHRONIC SINUSITIS, UNSPECIFIED 04/19/2017 MARECLO ANDINO MD Ot J34.2 DEVIATED NASAL SEPTUM 04/19/2017 MARCELO ANDINO MD Ot J34.3 HYPERTROPHY OF NASAL TURBINATES 04/19/2017 MARCELO ANDINO MD, Ot Z01.818 ENCOUNTER FOR OTHER PREPROCEDURAL EXAMIN 04/21/2017 MARCELO ANDINO MD Ot E03.9 HYPOTHYROIDISM, UNSPECIFIED 04/21/2017 MARCELO ANDINO MD Ot E28.2 POLYCYSTIC OVARIAN SYNDROME 04/21/2017 MARCELO ANDINO MD Ot F32.9 MAJOR DEPRESSIVE DISORDER, SINGLE EPISOD 04/21/2017 MARCELO ANDINO MD Ot F41.9 ANXIETY DISORDER, UNSPECIFIED 04/21/2017 MARCELO ANDINO MD Ot G35 MULTIPLE SCLEROSIS 04/21/2017 MARCELO ANDINO MD Ot G43.909 MIGRAINE, UNSP, NOT INTRACTABLE, WITHOUT 04/21/2017 MARCELO ANDINO MD Ot J32.0 CHRONIC MAXILLARY SINUSITIS 04/21/2017 MARCELO ANDINO MD Ot J32.2 CHRONIC ETHMOIDAL SINUSITIS 04/21/2017 MARCELO ANDINO MD Ot J34.3 HYPERTROPHY OF NASAL TURBINATES 04/21/2017 MARCELO ANDINO MD Ot R73.03 PREDIABETES 04/21/2017 MARCELO ANDINO MD Ot Z79.84 CARE HOME (CURRENT) USE OF ORAL HYPOGLYC 04/21/2017 AMRCELO ANDINO MD Ot Z79.899 OTHER ACCOUNTING MANAGER ASSISTANT CONTROLLER (CURRENT) DRUG THERAPY 04/22/2017 MARCELO ANDINO MD Ot E03.9 HYPOTHYROIDISM, UNSPECIFIED 04/22/2017 MARCELO ANDINO MD Ot E28.2 POLYCYSTIC OVARIAN SYNDROME 04/22/2017 MARCELO ANDINO MD Ot F32.9 MAJOR DEPRESSIVE DISORDER, SINGLE EPISOD 04/22/2017 MARCELO ANDINO MD Ot F41.9 ANXIETY DISORDER, UNSPECIFIED 04/22/2017 MARCELO ANDINO MD Ot G35 MULTIPLE SCLEROSIS 04/22/2017 MARCELO ANDINO MD Ot G43.909 MIGRAINE, UNSP, NOT INTRACTABLE, WITHOUT 04/22/2017 MARCELO ANDINO MD Ot J32.0 CHRONIC MAXILLARY SINUSITIS 04/22/2017 MARCELO ANDINO MD Ot J32.2 CHRONIC ETHMOIDAL SINUSITIS 04/22/2017 MARCELO ANDINO MD Ot J34.3 HYPERTROPHY OF NASAL TURBINATES 04/22/2017 MARCELO ANDINO MD Ot R73.03 PREDIABETES 04/22/2017 MARCELO ANDINO MD Ot Z79.84 ACCOUNTING MANAGER ASSISTANT CONTROLLER (CURRENT) USE OF ORAL HYPOGLYC 04/22/2017 MARCELO ANDINO MD Ot Z79.899 OTHER ACCOUNTING MANAGER ASSISTANT CONTROLLER (CURRENT) DRUG THERAPY 05/18/2017 MARCELO ANDINO MD Ot E03.9 HYPOTHYROIDISM, UNSPECIFIED 05/18/2017 MARCELO ANDINO MD Ot E28.2 POLYCYSTIC OVARIAN SYNDROME 05/18/2017 MARCELO ANDINO MD Ot F32.9 MAJOR DEPRESSIVE DISORDER, SINGLE EPISOD 05/18/2017 MARCELO ANDINO MD, Ot F41.9 ANXIETY DISORDER, UNSPECIFIED 05/18/2017 MARCELO ANDINO MD Ot G35 MULTIPLE SCLEROSIS 05/18/2017 MARCEOL ANDINO MD Ot G43.909 MIGRAINE, UNSP, NOT INTRACTABLE, WITHOUT 05/18/2017 MARCELO ANDINO MD Ot J32.0 CHRONIC MAXILLARY SINUSITIS 05/18/2017 MARCELO ANDINO MD Ot J32.2 CHRONIC ETHMOIDAL SINUSITIS 05/18/2017 MARCELO ANDINO MD Ot J34.3 HYPERTROPHY OF NASAL TURBINATES 05/18/2017 MARCELO ANDINO MD Ot R73.03 PREDIABETES 05/18/2017 MARCELO ANDINO MD Ot Z79.84 ACCOUNTING MANAGER ASSISTANT CONTROLLER (CURRENT) USE OF ORAL HYPOGLYC 05/18/2017 MARCELO ANDINO MD Ot Z79.899 OTHER ACCOUNTING MANAGER ASSISTANT CONTROLLER (CURRENT) DRUG THERAPY 07/19/2017 Ot 780.79 OTH MALAISE FATIGUE 07/19/2017 Ot 781.3 LACK OF COORDINATION 07/19/2017 Ot 782.0 SKIN SENSATION DISTURB 07/19/2017 Ot 794.09 ABN BLANK DRILLER FUNCT STUDY NEC 07/19/2017 Ot V72.84 EXAM PRE- OPERATIVE NOS 07/19/2017 NOEMI MELTON EXPRESS CLERK Ot 255.8 ADRENAL DISORDER NEC 07/19/2017 NOEMI MELTONP Ot 573.9 LIVER DISORDER NOS 07/19/2017 JAYCE NORTH, JEREMY Zheng Ot V76.12 OTH SCREEN MAMMO-MALIGN NEOPLASM OF KARMA 07/19/2017 NOEMI MELTON EXPRESS CLERK Ot G35 MULTIPLE SCLEROSIS 07/19/2017 NOEMI MELTON EXPRESS CLERK Ot J32.9 CHRONIC SINUSITIS, UNSPECIFIED 07/19/2017 NOEMI MELTON EXPRESS CLERK Ot M54.9 DORSALGIA, UNSPECIFIED 07/19/2017 NOEMI MELTON EXPRESS CLERK Ot R51 HEADACHE 07/19/2017 REFUGIO MELTONIA Kyree EXPRESS CLERK Ot G35 MULTIPLE SCLEROSIS 07/19/2017 REFUGIO MELTONIA Kyree EXPRESS CLERK Ot M43.16 SPONDYLOLISTHESIS, LUMBAR REGION 07/19/2017 NOEMI MELTON EXPRESS CLERK Ot I95.9 HYPOTENSION, UNSPECIFIED 07/19/2017 NOEMI MELTON EXPRESS CLERK Ot R00.0 TACHYCARDIA, UNSPECIFIED 07/19/2017 NOEMI MELTON EXPRESS CLERK Ot R23.1 PALLOR 07/19/2017 NOEMI MELTON EXPRESS CLERK Ot R94.31 ABNORMAL ELECTROCARDIOGRAM [ECG] [EKG] 07/19/2017 LLOYD MELTON DO Ot G35 MULTIPLE SCLEROSIS 07/19/2017 LLOYD MELTON DO Ot M47.812 SPONDYLOSIS W/O MYELOPATHY OR RADICULOPA 07/19/2017 NOEMI MELTON EXPRESS CLERK Ot M47.816 SPONDYLOSIS W/O MYELOPATHY OR RADICULOPA 07/19/2017 NOEMI MELTON EXPRESS CLERK Ot M51.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, 07/19/2017 NOEMI METLON EXPRESS CLERK Ot M51.26 OTHER INTERVERTEBRAL DISC DISPLACEMENT, 07/19/2017 THU NORTH, MARCELO Yeager Ot J01.80 OTHER ACUTE SINUSITIS 10/13/2017 Noemi Melton A 840.9 SPRAIN OF UNSPECIFIED SITE OF SHOULDER AND UPPER ARM 10/13/2017 Noemi Melton L A S43.401A UNSPECIFIED SPRAIN OF RIGHT SHOULDER JOINT, INIT ENCNTR 03/29/2018 NOEMI MELTON EXPRESS CLERK Ot 255.8 ADRENAL DISORDER NEC 03/29/2018 NOEMI MELTON L EXPRESS CLERK Ot 573.9 LIVER DISORDER NOS 03/29/2018 JAYCE NORTH, JEREMY G Ot V76.12 OTH SCREEN MAMMO-MALIGN NEOPLASM OF KARMA 03/29/2018 REFUGIO MELTONIA L EXPRESS CLERK Ot G35 MULTIPLE SCLEROSIS 03/29/2018 CARLOS MELTONRICIA L EXPRESS CLERK Ot J32.9 CHRONIC SINUSITIS, UNSPECIFIED 03/29/2018 CARLOS MELTONRICIA L EXPRESS CLERK Ot M54.9 DORSALGIA, UNSPECIFIED 03/29/2018 CARLOS MELTONRICIA L EXPRESS CLERK Ot R51 HEADACHE 03/29/2018 TACHO NOEMI L EXPRESS CLERK Ot G35 MULTIPLE SCLEROSIS 03/29/2018 TACHO NOEMI L EXPRESS CLERK Ot M43.16 SPONDYLOLISTHESIS, LUMBAR REGION 03/29/2018 CARLOS MELTONRICIA L EXPRESS CLERK Ot I95.9 HYPOTENSION, UNSPECIFIED 03/29/2018 TACHO NOEMI L EXPRESS CLERK Ot R00.0 TACHYCARDIA, UNSPECIFIED 03/29/2018 TACHO NOEMI L EXPRESS CLERK Ot R23.1 PALLOR 03/29/2018 TACHO NOEMI L EXPRESS CLERK Ot R94.31 ABNORMAL ELECTROCARDIOGRAM [ECG] [EKG] 03/29/2018 LLOYD MELTON DO Ot G35 MULTIPLE SCLEROSIS 03/29/2018 LLOYD MELTON DO Ot M47.812 SPONDYLOSIS W/O MYELOPATHY OR RADICULOPA 03/29/2018 CARLOS MELTONRICIA L EXPRESS CLERK Ot M47.816 SPONDYLOSIS W/O MYELOPATHY OR RADICULOPA 03/29/2018 REFUGIO MELTONIA L EXPRESS CLERK Ot M51.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, 03/29/2018 CARLOS MELTONRICIA L EXPRESS CLERK Ot M51.26 OTHER INTERVERTEBRAL DISC DISPLACEMENT, 03/29/2018 THU NORTH, MARCELO Yeager Ot J01.80 OTHER ACUTE SINUSITIS 04/04/2018 JAYCE NORTH, JEREMY Zheng Ot Z12.31 ENCNTR SCREEN MAMMOGRAM FOR MALIGNANT NE 04/26/2018 JEREMY EDUARDO MD Ot Z12.31 ENCNTR SCREEN MAMMOGRAM FOR MALIGNANT NE 05/08/2018 HOLGER CORREA MD Ot Z01.818 ENCOUNTER FOR OTHER PREPROCEDURAL EXAMIN 05/08/2018 HOLGER CORREA MD Ot Z01.818 ENCOUNTER FOR OTHER PREPROCEDURAL EXAMIN 05/08/2018 MADELINE NORTH, HOLGER Vigil Ot Z01.818 ENCOUNTER FOR OTHER PREPROCEDURAL EXAMIN Procedures Code Description Performed By Performed On 74.1 LOW CERVICAL 08/22/2011 Results Test Result Range Total T3 - 06/15/16 09:32 Total T3 2.40 ng/mL 0.58-1.59 T4 - 06/15/16 09:32 T4 8.0 ug/dL 4.5-12.5 Iodine, Serum or Plasma - 06/15/16 09:32 IODINE, SERUM OR PLASMA 1114.8 UG/L 40.0-92.0 FSH and LH - 06/15/16 09:32 LH 6.6 MIU/ML FSH 6.4 MIU/ML Complete blood count (CBC) with automated white blood cell (WBC) differential - 04/04/17 10:00 Blood leukocytes automated count (number/volume) 12.6 10*3/uL 4.3-11.0 Blood erythrocytes automated count (number/volume) 4.63 10*6/uL 4.35-5.85 Venous blood hemoglobin measurement (mass/volume) 14.2 g/dL 11.5-16.0 Blood hematocrit (volume fraction) 42 % 35-52 Automated erythrocyte mean corpuscular volume 90 [foz_us] 80-99 Automated erythrocyte mean corpuscular hemoglobin (mass per erythrocyte) 31 pg 25-34 Automated erythrocyte mean corpuscular hemoglobin concentration measurement ( mass/volume) 34 g/dL 32-36 Automated erythrocyte distribution width ratio 12.3 % 10.0-14.5 Automated blood platelet count (count/volume) 337 10*3/uL 130-400 Automated blood platelet mean volume measurement 10.1 [foz_us] 7.4-10.4 Automated blood neutrophils/100 leukocytes 60 % 42-75 Automated blood lymphocytes/100 leukocytes 28 % 12-44 Blood monocytes/100 leukocytes 10 % 0-12 Automated blood eosinophils/100 leukocytes 2 % 0-10 Automated blood basophils/100 leukocytes 0 % 0-10 Blood neutrophils automated count (number/volume) 7.6 10*3 1.8-7.8 Blood lymphocytes automated count (number/volume) 3.5 10*3 1.0-4.0 Blood monocytes automated count (number/volume) 1.2 10*3 0.0-1.0 Automated eosinophil count 0.2 10*3/uL 0.0-0.3 Automated blood basophil count (count/volume) 0.0 10*3/uL 0.0-0.1 Blood type T Indirect antibody screen panel - 04/04/17 10:00 ABO+Rh group OP NRG Blood group antibody screen NEGATIVE NRG Methicillin resistant Staphylococcus aureus (MRSA) screening culture - 10:00 Methicillin resistant Staphylococcus aureus (MRSA) screening culture NEG NRG Urine beta human chorionic gonadotropin (hCG) measurement - 04/08/17 10:20 Urine beta human chorionic gonadotropin (hCG) measurement NEGATIVE NEGATIVE Blood type T Indirect antibody screen panel - 04/08/17 10:35 ABO+Rh group OP NRG Transfusion band number [id number] NRG Blood group antibody screen NEGATIVE NRG Methicillin resistant Staphylococcus aureus (MRSA) screening culture - 06:32 Methicillin resistant Staphylococcus aureus (MRSA) screening culture NEG NRG VIT B-12 - 09/29/17 08:17 Vitamin B12 648.00 pg/mL 213.00-816.00 Testosterone, Free, Direct - 09/29/17 08:17 FREE TESTOSTERONE(DIRECT) 4.2 PG/ML 0.0-4.2 Antidiuretic Hormone (ADH), Plasma - 09/29/17 08:17 ADH 4.7 PG/ML 0.0-4.7 ACTH, Plasma - 09/29/17 08:17 ACTH, Plasma 24.3 pg/mL 7.2-63.3 ADH - 09/29/17 08:17 ADH 4.7 pg/mL 0.0-4.7 Encounters ACCT No. Visit Date/Time Discharge Status Pt. Type Provider Facility Loc./Unit Complaint [id number] 05/08/2018 11:30:00 05/08/2018 11:47:00 DIS Outpatient MADELINE NORTH, HOLGER Vigil [facility] PREOP COLONOSCOPY [id number] 04/03/2018 09:38:00 04/03/2018 23:59:59 CLS Outpatient JAYCE NORTH, JEREMY Zheng [facility] RAD SCREENING [id number] 04/21/2017 06:04:00 04/21/2017 10:55:00 DIS Outpatient THU NORTH, MARCELO Yeager [facility] CHRONIC SINUSITIS, DIVERTED SEPTUM [id number] 04/19/2017 05:33:00 04/19/2017 10:05:00 DIS Outpatient MARCELO ANDINO MD [facility] PREOP BILATERAL ESS;POSS SEPTOPLASTY,RED TURBINATES [id number] 04/08/2017 10:19:00 04/09/2017 12:25:00 DIS Outpatient JEREMY EDUARDO MD [facility] DYFUNCTIONAL UTERINE BLEEDING [id number] 04/04/2017 09:32:00 04/04/2017 23:59:59 CLS Outpatient MARCELO ANDINO MD [facility] RAD CHRONIC PANSINUSITIS [id number] 04/04/2017 09:28:00 04/04/2017 10:28:00 DIS Outpatient JEREMY EDUARDO MD [facility] PREOP DYFUNCTIONAL UTERINE BLEEDING [id number] 03/05/2017 08:03:00 03/05/2017 23:59:59 CLS Outpatient LLOYD MELTON DO [facility] RAD MS [id number] 03/04/2017 16:51:00 03/04/2017 23:59:59 CLS Outpatient TACHO NOEMI L EXPRESS CLERK [facility] RAD MS [id number] 10/15/2015 10:18:00 10/15/2015 23:59:59 CLS Outpatient TACHO NOEMI L EXPRESS CLERK [facility] LAB TACHYCARDIA,CLAMMY ,HYPERTENSION,ABN EKG [id number] 10/03/2015 07:32:00 10/03/2015 23:59:59 CLS Outpatient TACHO NOEMI L EXPRESS CLERK [facility] RAD MS,BACK PAIN [id number] 10/02/2015 07:32:00 10/02/2015 23:59:59 CLS Outpatient TACHO NOEMI L EXPRESS CLERK [facility] RAD MS,CHRONIC SINUSITIS,SEVERE SINUS HEADACHE [id number] 12/26/2013 09:55:00 12/26/2013 23:59:59 CLS Outpatient JEREMY EDUARDO MD [facility] RAD SCREENING [id number] 11/05/2013 08:03:00 11/05/2013 23:59:59 CLS Outpatient NOEMI MELTON [facility] RAD INCREASED CORTISOL , [id number] 05/12/2018 07:30:00 PEN Preadmit MADELINE NORTH, HOLGER Vigil [facility] ENDO SCREENING/FAMILY HX COLON CANCER [id number] 04/04/2017 10:13:00 Document Registration [id number] 08/11/2012 07:06:00 Document Registration [id number] 08/10/2012 07:11:00 Document Registration [id number] 06/23/2012 20:36:00 Document Registration [id number] 02/15/2012 12:55:00 Document Registration [id number] 08/22/2011 05:00:00 Document Registration [id number] 06/02/2011 17:15:00 Document Registration [id number] 11/02/2010 12:20:00 Document Registration [id number] 06/19/2010 07:53:00 Document Registration [id number] 05/31/2017 15:54:00 10/13/2017 16:20:00 DIS Outpatient Noemi Melton [id number] 09/29/2017 08:12:00 09/29/2017 23:59:00 DIS Outpatient Noemi Melton [id number] 09/20/2016 16:01:00 09/20/2016 23:59:00 DIS Outpatient Noemi Melton [id number] 06/15/2016 09:21:00 06/15/2016 23:59:00 DIS Outpatient Noemi Melton [id number] 10/06/2017 14:17:00 Document Registration
[2018-05-12] MEDS ORDERED: LACTATED RINGERS 1,000 ML IV ONE (07:00)
[2018-05-12] MEDS ORDERED: PROPOFOL INJECTION 50 ML IV ONE (07:22)
[2018-05-12] MEDS ORDERED: LIDOCAINE JELLY 2% 6 ML SYRINGE ONE (07:36)
--- NOTE | 2018-05-12 07:37 | Pre-Op Note & Conscious Sedat ---
Pre-Operative Progress Note H&P Reviewed The H&P was reviewed, patient examined and no changes noted. Date H&P Reviewed: May 12, 2018 Time H&P Reviewed: 07:25 Conscious Sedation Pre-Proced ASA Score 2 For ASA 3 and 4: Consider anesthesia and medical clearance. Also, for patients with a history of failed moderate sedation consider anesthesia. Airway Lungs Heart ASA score ASA 1: a normal healthy patient ASA 2: a patient with a mild systemic disease (mid diabetes, controlled hypertension, obesity ASA 3: a patient with a severe systemic disease that limits activity (angina , COPD, prior Myocardial infarction) ASA 4: a patient with an incapacitating disease that is a constant threat to life (CHF, renal failure) ASA 5: a moribund patient not expected to survive 24 hrs. (ruptured aneurysm) ASA 6: a declared brain patient whose organs are being harvested. For emergent operations, add the letter E after the classification Mallampati Classification Grade 3 Sedation Plan Analgesia, Amnesia, Plan communicated to team members, Discussed options with patient/fam, Discussed risks with patient/fam The patient is an appropriate candidate to undergo the planned procedure, sedation, and anesthesia. The patient immediately re-assessed prior to indication. HOLGER CORREA MD May 12, 2018 07:37
[2018-05-12] MEDS ORDERED: LIDOCAINE JELLY 2% 6 ML SYRINGE MM PRN (07:45)
[2018-05-12] MEDS ORDERED: LACTATED RINGERS 1,000 ML IV STA (07:45)
[2018-05-12 07:48] VITALS: BP 128/91
[2018-05-12 08:11] VITALS: BP 128/91
[2018-05-12 08:15] VITALS: BP 109/68
[2018-05-12 08:45] VITALS: BP 137/95
[2018-05-12 08:54] VITALS: BP 137/95
--- NOTE | 2018-05-12 09:04 | OPERATIVE REPORT ---
DATE OF SERVICE: COLONOSCOPY SUMMARY INDICATION FOR PROCEDURE: Screening colonoscopy, family history for colon cancer. DESCRIPTION OF PROCEDURE: The patient was placed in the left lateral decubitus position. Prior to doing colonoscopy, digital rectal evaluation was performed. Anal sphincter tone was normal and the perianal reflexes intact. No abnormalities were noted on digital inspection of anal canal or distal rectal vault. The colonoscope was then inserted into the rectum under direct visualization and advanced to the cecum. The cecum was identified by identification of the ileocecal valve and cecal strap. Photographic documentation was obtained. Careful inspection was made as the colonoscope was withdrawn. The patient did undergo Diprivan anesthesia. FINDINGS: There was no evidence for internal or external hemorrhoids. The rectum, sigmoid colon, descending colon, splenic flexure, transverse colon, hepatic flexure, ascending colon and cecum were unremarkable. No evidence for diverticulum, vascular malformation or neoplasia was identified. ASSESSMENT: Normal colonoscopy to the cecum. Considering the patient's family history, we would advocate consideration for repeat screening colonoscopy in 5 years. I thank you for the referral of this pleasant lady. Job ID: [id number] DocumentID: [id number] Dictated Date: 05/12/2018 08:03:45 Sr Account Executive Date: 05/12/2018 09:03:17 Dictated By: HOLGER CORREA MD
--- NOTE | 2018-05-12 13:10 | Anesthesia-General Post-Op ---
MAC Patient Condition Mental Status/LOC: Same as Preop Cardiovascular: Satisfactory Nausea/Vomiting: Absent Respiratory: Satisfactory Pain: Controlled Complications: Absent Post Op Complications Complications None Follow Up Care/Instructions Patient Instructions None needed. Anesthesiology Discharge Order Discharge Order Patient was seen after the procedure and she was doing well, no complaints, stable vital signs, no apparent adverse anesthesia problems. MALIK ELLISON DO May 12, 2018 13:10
== END 2018-05-12 08:45 | disposition home or self-care (01) ==
LOC: ENDO 06:37
PROVIDERS: ATTEND Internal Medicine
DX: Z12.11 Encounter for screening for malignant neoplasm of colon (principal); Z80.0 Family history of malignant neoplasm of digestive organs; G35 Multiple sclerosis; K21.9 Gastro-esophageal reflux disease without esophagitis; Z79.899 Other long term (current) drug therapy

== ENCOUNTER → 2019-06-06 | Outpatient (CLI) | payer BC ==
--- NOTE | 2019-06-06 16:46 | Diagnostic Imaging Report ---
INDICATION: Routine screening. COMPARISON: Comparison is made with prior mammograms from 04/03/2018 and 12/26/2013. TECHNIQUE: 2-D and 3-D bilateral screening mammography was performed. The current study was also evaluated with a Computer Aided Detection (CAD) system. 3-D tomosynthesis was also performed and reviewed. FINDINGS: Scattered fibroglandular densities are identified bilaterally. No mass or malignant-appearing microcalcifications are seen. Axillae are unremarkable. IMPRESSION: No mammographic features suspicious for malignancy are identified. ACR BI-RADS Category 1: Negative. Result letter will be mailed to the patient. Note: At least 10% of breast cancer is not imaged by mammography. Dictated by: Dictated on workstation # [id number]
== END ==
LOC: RAD 15:38
PROVIDERS: ATTEND Obstetrics & Gynecology
DX: Z12.31 Encounter for screening mammogram for malignant neoplasm of breast (principal)
CPT/HCPCS: 77067

== ENCOUNTER → 2020-10-06 | Outpatient (CLI) | payer BC ==
[~2020-10-06] MED LIST changes: +METF-865 PO; -METF500T8 PO; -OXYC-465 PO; +OXYC-556 PO
--- NOTE | 2020-10-06 12:29 | Diagnostic Imaging Report ---
INDICATION: Routine screening. COMPARISON: 06/06/2019 and 04/03/2018. TECHNIQUE: 2D and 3D bilateral screening mammography was performed with CAD. FINDINGS: Scattered fibroglandular densities are identified bilaterally. No mass or malignant appearing microcalcifications are seen. The axillae are unremarkable. IMPRESSION: No mammographic features suspicious for malignancy are identified. ACR BI-RADS Category 1: Negative. Result letter will be mailed to the patient. Note: At least 10% of breast cancer is not imaged by mammography. Dictated by: Dictated on workstation # [id number]
== END ==
LOC: RAD 10:00
PROVIDERS: ATTEND Obstetrics & Gynecology
DX: Z12.31 Encounter for screening mammogram for malignant neoplasm of breast (principal)
CPT/HCPCS: 77063; 77067

== ENCOUNTER → 2021-10-12 | Outpatient (CLI) | payer BC ==
[~2021-10-12] MED LIST changes: +CYCL10TA25 PO; -CYCL10TA9 PO; -ITRA100C PO; +ITRA100C9 PO
--- NOTE | 2021-10-13 13:00 | Diagnostic Imaging Report ---
INDICATION: Routine screening. COMPARISON: 10/06/2020 and 06/06/2019. TECHNIQUE: 2D and 3D bilateral screening mammography was performed with CAD. FINDINGS: Scattered fibroglandular densities are identified bilaterally. The parenchymal pattern is stable. No mass or malignant-appearing microcalcifications are seen. The axillae are unremarkable. IMPRESSION: No mammographic features suspicious for malignancy are identified. ACR BI-RADS Category 1: Negative. Result letter will be mailed to the patient. Note: At least 10% of breast cancer is not imaged by mammography. Dictated by: Dictated on workstation # [id number]
== END ==
LOC: RAD 15:47
PROVIDERS: ATTEND Obstetrics & Gynecology
DX: Z12.31 Encounter for screening mammogram for malignant neoplasm of breast (principal)
CPT/HCPCS: 77063; 77067

== ENCOUNTER → 2023-02-08 | Outpatient (CLI) | payer BC ==
--- NOTE | 2023-02-08 12:04 | Diagnostic Imaging Report ---
INDICATION: 43-year-old asymptomatic premenopausal female with history of chronic glucocorticosteroids use. COMPARISON: 11/02/2020 FINDINGS: AP Spine L1-L4: [BMD (g/cm2): 1.203] [T-Score: 0.0] [Z-Score: 0.2] [BMD Previous: 1.316] [BMD % Change: -8.6*] LT Hip Neck: [BMD (g/cm2): 0.980] [T-Score: -0.4] [Z-Score: 0.3] LT Hip Total: [BMD (g/cm2):1.033] [T-Score:0.2] [Z-Score: 0.6] [BMD Previous: 1.156] [BMD % Change: -10.6*] RT Hip Neck: [BMD (g/cm2):0.932] [T-Score:-0.8] [Z-Score:-0.1] RT Hip Total: [BMD (g/cm2):1.067] [T-score:0.5] [Z-Score:0.9] [BMD Previous:1.154] [BMD % Change:-7.5*] *Indicates significant change from prior examination based on 95% confidence level. World Health Organization criteria for BMD interpretation classify patients as Normal (T-score at or above -1.0), Osteopenic (T-score between -1.0 and -2.5) or Osteoporotic (T-score at or below -2.5). LIMITATIONS AND MODIFICATION: None. FRACTURE RISK (FRAX SCORE): The ten year probability of (%): Major Osteoporotic Fracture: [NA] Hip Fracture: [NA] IMPRESSION: 1. The bone mineral density is within the expected range for the patient's age. 2. Bone mineral density has decreased by a statistically significant amount, as detailed above. 3. See below National Osteoporosis Foundation guidelines on when to potentially initiate pharmacologic therapy. Based on the National Osteoporosis Foundation Guidelines, pharmacologic treatment should be initiated in any of the following, unless clinical conditions suggest otherwise: * Any patient with prior fragility fracture of the hip or vertebrae. A spine fracture indicates 5X risk for subsequent spine fracture and 2X risk for subsequent hip fracture. * Osteoporosis (T-score <-2.5). * Postmenopausal women and men age 50 and older with low bone mass/osteopenia (T-score between -1.0 and -2.5) by DXA and 10-year major osteoporotic fracture greater than 20% or a 10-year probability of hip fracture greater than 3%. These fracture risks are supplied above in the FRAX score, if applicable. * Clinician judgement and/or patient preferences may indicate treatment for people with 10-year fracture probabilities above or below these levels. Dictated by: Dictated on workstation # [id number]
== END ==
LOC: RAD 09:01
PROVIDERS: ATTEND Nurse Practitioner Family
DX: N95.8 Other specified menopausal and perimenopausal disorders (principal); K00.9 Disorder of tooth development, unspecified; J32.1 Chronic frontal sinusitis; Z78.0 Asymptomatic menopausal state; Z79.52 Long term (current) use of systemic steroids
CPT/HCPCS: 77080

== ENCOUNTER → 2023-03-18 | Outpatient (CLI) | payer BC ==
--- NOTE | 2023-03-22 15:08 | Diagnostic Imaging Report ---
Indication: Routine screening. Comparison is made with prior mammograms from 10/12/2021 and 10/06/2020. 2-D and 3-D bilateral screening mammography was performed with CAD. Both breasts are heterogeneously dense, limiting the sensitivity of mammography. The parenchymal pattern is stable. No mass or malignant-appearing microcalcifications are seen. Axillae are unremarkable. IMPRESSION: BI-RADS Category 1 No mammographic features suspicious for malignancy are identified. ACR BI-RADS Category 1: Negative. Result letter will be mailed to the patient. Note: At least 10% of breast cancer is not imaged by mammography. Dictated by: Dictated on workstation # [id number]
== END ==
LOC: RAD 15:45
PROVIDERS: ATTEND Obstetrics & Gynecology
DX: Z12.31 Encounter for screening mammogram for malignant neoplasm of breast (principal)
CPT/HCPCS: 77063; 77067